=== PATIENT | female | born 1965 | race Caucasian/White ===

== ENCOUNTER 2024-11-08 09:42 | Emergency (ER) | payer BC ==
[~2024-11-08] VITALS: Ht 157.5 cm; Wt 70.3 kg
[2024-11-08 10:23] VITALS: BP 164/94; TEMP 98.6
[2024-11-08] MEDS ORDERED: CYCLOBENZAPRINE 10 MG TABLET ONE (10:46)
[2024-11-08] MEDS ORDERED: LIDOCAINE 5% (PATCH) 1 EA PATCH TP ONE (10:46)
[2024-11-08] MEDS ORDERED: KETOROLAC TROMETHAMINE INJ 30 MG/ML VIAL ONE (10:46)
[2024-11-08] MEDS ORDERED: CYCL5TAB PO (10:49)
[2024-11-08] MEDS ORDERED: LIDO30AD10 TP (10:49)
[2024-11-08] MEDS ORDERED: OXYC-128 PO (10:49)
[2024-11-08] MEDS ORDERED: NAPR-1164 PO (10:49)
[2024-11-08] MEDS: KETOROLAC TROMETHAMINE INJ 30 MG/ML VIAL IM ONE (10:55)
[2024-11-08 10:57] VITALS: O2SAT 97
[2024-11-08] MEDS: LIDOCAINE 5% (PATCH) 1 EA PATCH TP SCH (10:57)
[2024-11-08] MEDS: CYCLOBENZAPRINE 10 MG TABLET PO ONE (10:57)
== END 2024-11-08 11:00 | disposition home or self-care (01) ==
LOC: ER 09:48
DX: M54.16 Radiculopathy, lumbar region (principal); R26.2 Difficulty in walking, not elsewhere classified
CPT/HCPCS: 99283; 96372; J1885